=== PATIENT | female | born 1975 | race Caucasian/White ===

== ENCOUNTER → 2021-12-09 | Outpatient (CLI) | payer BC ==
--- NOTE | 2021-12-09 09:33 | KCIC ---
Examination: MRI of the left shoulder without contrast HISTORY: History of left shoulder pain for 2 month COMPARISON: None TECHNIQUE: Multiplanar, multisequence MR imaging of the left shoulder performed without contrast FINDINGS: The long head of the biceps tendon within the bicipital groove. The attachment of the long head the b iceps tendon to the superior labral anchor grossly appears intact. The attachment of subscapularis te ndon, supraspinatus, infraspinatus tendon appears intact. There is mild increased T2 signal identifie d in the supraspinatus, infraspinatus tendon likely tendinosis. The visualized labrum grossly appears unremarkable. The acromion is type II. Mild joint space loss in the acromioclavicular joint likely degenerative julito nges with mild trabecular edema identified in the acromion and distal clavicle. There is mild obscura tion of fat in the rotator interval. The muscle bulk grossly appears unremarkable IMPRESSION: 1. Mild increased T2 signal identified in the supraspinatus, infraspinatus tendon likely tendinosis. 2. Mild obscuration of fat in the rotator interval. Correlate for adhesive capsulitis. 3. Mild degenerative changes acromioclavicular joint. Electronically signed by: Mauricio Vizcarra MD (12/09/2021 9:31 AM) [id number]
== END ==
LOC: KCIC MRI 08:01
PROVIDERS: ATTEND Chiropractor
DX: M19.012 Primary osteoarthritis, left shoulder (principal); M25.812 Other specified joint disorders, left shoulder
CPT/HCPCS: 73221